=== PATIENT | female | born 1940 | race Caucasian/White ===

== ENCOUNTER 2019-04-12 11:24 | Emergency (ER) | payer MEDICARE, SELFPAY ==
[2019-04-12 11:24] VITALS: BP 136/82; PULSE 86; RESP 16; TEMP 36.1; O2SAT 95; BMI 24.0
--- NOTE | 2019-04-12 11:29 | EKG12_ITS ---
Test Reason : MEDICAL CLEARANCE Blood Pressure : / mmHG Vent. Rate : 084 BPM Atrial Rate : 084 BPM P-R Int : 156 ms QRS Dur : 076 ms QT Int : 362 ms P-R-T Axes : 000 -47 014 degrees QTc Int : 427 ms Normal sinus rhythm with sinus arrhythmia Left anterior fascicular block Nonspecific ST abnormality Abnormal ECG Confirmed by ROD QUESADA, DANNY ([id number]), supervising editor news reel TAIWO LINDSEY ([id number]) on 04/16/2019 12:08:31 PM Referred By: LUIS Confirmed By:LANDEN VELASCO MD
[2019-04-12 12:13] LABS: Absolute Lymphocyte Count 0.98 X10^3/uL (0.83-4.51); Absolute Neutrophil Count 1.8 X10^3/uL (2.0-7.7); Basophil# 0.02 X10^3/uL; Basophil% 0.6 % (0-1); Eosinophil# 0.14 X10^3/uL; Eosinophils% 4.3 % (0-5); Hematocrit 43.2 % (37-47); Hemoglobin 14.2 g/dL (12.0-15.0); Lymphocyte # 0.98 X10^3/ul (4.0); Lymphocyte % 29.9 % (19-41); Mean Corp Hgb Conc 32.9 g/dL (32-36); Mean Corpuscular Volume 94.3 fL (81-99); Mean Platelet Vol. 10.7 fl (6.2-12.0); Monocyte# 0.31 X10^3/uL; Monocyte% 9.5 % (0-10); NRBC Flagged by Analyzer 0 % (0-5); Neutrophil # 1.82 X10^3/uL (2.7-7.7); Neutrophil % 55.4 % (47-70); Platelet Count 175 K/mm3 (150-450); RBC Distribution Width CV 14.4 % (11.6-14.6); RBC Distribution Width SD 49.7 fl (35.1-43.9); Red Blood Count 4.58 M/mm3 (4.2-5.4); White Blood Count 3.3 K/mm3 (4.4-11.0)
[2019-04-12 12:32] LABS: ALB/GLOB Ratio 1.2 RATIO (0.9-2.4); AST(SGOT) 13 U/L (15-37); Alanine Aminotransfer ALT/SGPT 16 U/L (13-56); Albumin, Serum 3.7 g/dL (3.2-5.0); Alkaline Phosphatase 80 U/L (45-117); Anion Gap 5 (5-15); BUN 19 mg/dL (7-18); BUN/Creat Ratio 23.1 RATIO (10-20); Calcium,Total 9.4 mg/dL (8.5-10.1); Chloride 112 mmol/L (98-107); Creatinine, Serum 0.82 mg/dL (0.55-1.02); EST Glomerular Filtration Rate 72 mL/min (>60); Est Glom Filt Rate - Afr Amer 87 mL/min (>60); Estimated Creatinine Clearance 53.79 ml/min; Globulin 3.2 g/dL (2.2-4.2); Glucose 96 mg/dL (74-106); Potassium 3.7 mmol/L (3.5-5.1); Protein, Total 6.9 g/dL (6.4-8.2); Sodium Level 142 mmol/L (136-145)
[2019-04-12 12:37] VITALS: RESP 17
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
--- NOTE | 2019-04-12 12:57 | ED.VISSUMM ---
- ER Visit Summary Date of Service: 04/12/19 Chief Complaint: Suicidal History of Present Illness: The patient is a 79 F here for suicidal ideation. She has depression symptoms. Symptoms were worse after the of her son from cancer. She thought about overdosing, but did not take anything. She has no medical complaints today. Physical Examination: Afebrile and vital signs unremarkable. Patient is depressed. Alert. Oriented. Heart regular. Lungs clear. Abdomen soft. Skin appears normal. Moves all extremities. Ambulates without difficulty. Test Results: CBC, CMP, alcohol level, and tox screen unremarkable. Emergency Department Course and Treatment: Patient had suicide precautions. She had a pink slip by law enforcement. Her clearance was unremarkable. She is medically cleared for transfer and admission to a psychiatric facility. Crisis is evaluating the patient. Treatment Plan: As above Disposition: Transfer pending crisis evaluation Impression: 1. Suicidal ideation This note was generated with [employer] dictation software. It may contain incorrect words, spelling, and punctuation that were not noted in review of the chart prior to signing ED Disposition - Plan for ED Patient: [facility] [[facility] Provider] -
[2019-04-12 13:11] VITALS: RESP 16
--- NOTE | 2019-04-12 13:15 | CM.ED ---
SOCIAL WORK REFERRAL FAXED AND CALLED TO [facility] FOR INPATIENT PSYCH SERVICES. ROSETTA SMITH, DRY COLOR TESTER, LOOPER FIXER.
[2019-04-12 13:52] LABS: Amphetamine Urine VISTA NEGATIVE (<1000 ng/mL); Barbiturate Urine VISTA NEGATIVE (< 200 ng/mL); Benzodiazepine Urine VISTA NEGATIVE (< 200 ng/mL); Cocaine Urine VISTA NEGATIVE (< 300 ng/mL); Ecstacy Urine VISTA NEGATIVE (< 500 ng/mL); Methadone Urine VISTA NEGATIVE (< 300 ng/mL); PCP Urine VISTA NEGATIVE (< 25 ng/mL); THC Urine VISTA NEGATIVE (< 50 ng/mL); Vista UDS pH Range 6
[2019-04-12 15:06] VITALS: BP 128/74; PULSE 87; RESP 18; O2SAT 99
--- NOTE | 2019-04-12 15:12 | CM.ED ---
SOCIAL WORK CALL TO [facility] [phone] TO CHECK ON STATUS OF REFERRAL FOR INPATIENT PSYCH SERVICES. LEFT MESSAGE FOR SENIOR PLANNING MANAGER, ITZEL. AWAITING CALL BACK AT THIS TIME. ROSETTA SMITH, GENERALIST, LINING MARKER.
--- NOTE | 2019-04-12 15:47 | CM.ED ---
SOCIAL WORK RECEIVED PHONE CALL FROM ITZEL WITH [facility]. PER ITZEL, PATIENT IS NOT SERVICE CONNECTED AND RECOMMENDING THIS WORKER TRY ANOTHER PLACEMENT. CALL TO [facility], SPOKE WITH [facility]. REVIEWED REFERRAL AND [facility] REPORTS DOES HAVE BEDS AVAILABLE. REFERRAL FAXED. PER [facility], WILL REVIEW AND GET BACK TO THIS WORKER. ROSETTA SMITH, WOOD TILE INSTALLER, STONEMASON SUPERVISOR.
[2019-04-12 16:00] VITALS: RESP 16
--- NOTE | 2019-04-12 16:17 | CM.ED ---
Addendum entered by Anita Smith 04/12/19 16:42: PATIENT AND NIECE UPDATED. Original Note: SOCIAL WORK PATIENT ACCEPTED TO [facility]. ACCEPTING PHYSICIAN DR. CHAMBERS. PINK SLIP FAXED TO [facility]. FAST FOOD SALES ASSISTANT TO SET UP TRANSPORT. ANITA SMITH, SUBSTATION ENGINEER, LUG BREAKER AND WIRE PULLER.
[2019-04-12 16:18] VITALS: BP 128/74; PULSE 84; RESP 18; O2SAT 99
== END 2019-04-12 16:55 ==
PROVIDERS: Emergency Provider Emergency Medicine
DX: R45.851 Suicidal ideations (principal); Z72.89 Other problems related to lifestyle; Z60.2 Problems related to living alone
CPT/HCPCS: 80053; 80307; 80320; 85025; 93005; 99284; G0480

== ENCOUNTER 2019-04-26 19:17 | Emergency (ER) | payer MEDICARE, OTHER, SELFPAY ==
[2019-04-26 19:19] VITALS: BP 164/94; PULSE 90; RESP 18; TEMP 36.7; O2SAT 94; BMI 26.1
--- NOTE | 2019-04-26 19:34 | EKG12_ITS ---
Test Reason : DYSRHYTHMIA Blood Pressure : / mmHG Vent. Rate : 078 BPM Atrial Rate : 078 BPM P-R Int : 186 ms QRS Dur : 086 ms QT Int : 386 ms P-R-T Axes : 049 -27 027 degrees QTc Int : 440 ms Normal sinus rhythm Normal ECG Confirmed by CRISTAL QUESADA, JO ([id number]), map editor GRAHAM GUTIERREZ ([id number]) on 04/29/2019 3:19:50 PM Referred By: KELLY Confirmed By:JO BEE MD
--- NOTE | 2019-04-26 19:34 | CT_ITS ---
STUDY: CT BRAIN WITHOUT CONTRAST REASON FOR EXAM: Female, 79 years old. Dizziness. History of hydrocephalus. RADIATION DOSAGE (If Supplied By Facility): CTDIvol = ( 44.99 ) mGy, DLP = ( 762.36 ) mGycm TECHNIQUE: Transaxial CT imaging of the brain was performed without administration of intravenous contrast material. Individualized dose optimization techniques were used for this CT. COMPARISON: No relevant priors. FINDINGS: Normal soft tissue structures. Normal calvarium. There is disproportionate enlargement of the lateral and third ventricles, as compared to the extra-axial spaces. The findings suggest normal pressure hydrocephalus (NPH). There are areas of decreased attenuation within the white matter tracts of the supratentorial brain, consistent with microvascular disease changes. There are small punctate calcifications of the basal ganglia which are seen in the aging brain as a normal variant. Normal brainstem. Normal cerebellum. There is no intracranial hemorrhage. There are no findings of an acute ischemic infarction. Normal visualized paranasal sinuses. CT/Brain/Head without Contrast IMPRESSION: Out NPH versus central atrophy. There is no acute intracranial or calvarial abnormality. Electronically Signed: Ayaz Valdovinos DO at 20:16 EDT Tel [phone], Service support ,
--- NOTE | 2019-04-26 19:36 | ED.VISSUMM ---
- ER Visit Summary Date of Service: 04/26/19 Chief Complaint: Dizziness History of Present Illness: The patient is a 79 F 3 of hypertension depression. Recently hospitalized and discharged today from [facility] for psychiatry. Patient states that she had room spinning dizziness started about 2 hours ago. No headache. No chest pain. No shortness of breath. Some mild nausea but no vomiting or diarrhea. No fever. No dysuria. No melena. No headache or head injury. No history of prior stroke or TIA. No weakness or numbness of her upper or lower extremities. Physical Examination: Older female no acute distress. Vital signs are stable. She is afebrile. HEENT exam unremarkable. Atraumatic. Pupils are reactive light. Extra motions are intact. Better and ear canals and TMs are unremarkable. No wax. No facial droop. Normal speech. Neck nontender. No bruits. Lungs clear to auscultation bilaterally. Heart regular rhythm rate about 90 no murmur. Abdomen soft nontender normal bowel sounds no peritoneal signs. Remedies moves all 4. Neurovascular intact. Equal symmetrical 5 out of 5 dairy equipment mechanic strength. Equal symmetrical 5 out of 5 dorsi and plantar flexion. She has mild pedal edema both feet. Calves are nontender without edema or cords. Neurologically she is awake and alert. She knows here, month and president. She knows who she is and where she is at. She has no slurred speech no facial droop. NIH score is 0. Back exam is normal. Hallpike maneuver does make her dizziness worse and it causes the room spinning. Test Results: EKG shows sinus rhythm rate of 78 with no acute abnormalities. CBC normal white count of 5 hemoglobin 13. Chemistries unremarkable gap is 6. BUN [address] brain shows old normal pressure hydrocephalus versus central atrophy but no acute process read by the radiologist and reviewed by me. Emergency Department Course and Treatment: Elderly female examined history consistent with acute vertigo. Went to be p.o. Valium and IV Zofran. Repeat exam at 9:05 PM patient is doing well. She states she feels much better after the p.o. Valium and the IV Zofran. Repeat blood work her exam is currently normal. Treatment Plan: Valium as needed for vertigo. Follow up with her doctor. Disposition: Discharge Impression: Acute dizziness secondary to benign positional vertigo This note was generated with [employer] software. It may contain incorrect words, spelling, and punctuation that were not noted in review of the chart prior to signing ED Disposition - Plan for ED Patient: [facility] [Primary [facility] Provider] -
[2019-04-26] MEDS: diazePAM 2 MG Tablet 4 MG PO ×2 (19:43→21:23)
[2019-04-26] MEDS: Ondansetron 4 MG/2 ML Vial IV (19:43)
[2019-04-26 19:44] LABS: Absolute Lymphocyte Count 1.62 X10^3/uL (0.83-4.51); Absolute Neutrophil Count 2.9 X10^3/uL (2.0-7.7); Basophil# 0.01 X10^3/uL; Basophil% 0.2 % (0-1); Eosinophil# 0.21 X10^3/uL; Hematocrit 41.9 % (37-47); Hemoglobin 13.5 g/dL (12.0-15.0); Lymphocyte # 1.62 X10^3/ul (4.0); Lymphocyte % 31.1 % (19-41); Mean Corp Hgb Conc 32.2 g/dL (32-36); Mean Corpuscular Hgb 30.7 pg (27.0-32.0); Mean Corpuscular Volume 95.2 fL (81-99); Mean Platelet Vol. 11.5 fl (6.2-12.0); Monocyte# 0.44 X10^3/uL; Monocyte% 8.4 % (0-10); NRBC Flagged by Analyzer 0 % (0-5); Neutrophil % 55.7 % (47-70); Platelet Count 177 K/mm3 (150-450); RBC Distribution Width CV 14.8 % (11.6-14.6); RBC Distribution Width SD 52.1 fl (35.1-43.9); White Blood Count 5.2 K/mm3 (4.4-11.0)
[2019-04-26 20:01] LABS: Anion Gap 6 (5-15); BUN 25 mg/dL (7-18); BUN/Creat Ratio 25.4 RATIO (10-20); Calcium,Total 9.6 mg/dL (8.5-10.1); Chloride 110 mmol/L (98-107); Creatinine, Serum 0.98 mg/dL (0.55-1.02); EST Glomerular Filtration Rate 58 mL/min (>60); Est Glom Filt Rate - Afr Amer 71 mL/min (>60); Estimated Creatinine Clearance 41.51 ml/min; Glucose 127 mg/dL (74-106); Potassium 3.7 mmol/L (3.5-5.1); Sodium Level 142 mmol/L (136-145)
--- NOTE | 2019-04-26 21:07 | ED.DEP ---
ED Disposition - Plan for ED Patient: Disposition: Home or Assisted Living Instructions: VERTIGO, Unspecified Prescriptions: Diazepam [Valium] 5 mg PO 4X/DAY PRN PRN 7 Days #20 tab PRN Reason: Vertigo Prescription Printed [facility]errals: [facility] [Primary Care Provider] - 1 Week if not improving Additional Instructions: Fluids and rest. Valium as needed for the dizziness. Not drive while taking the Valium. Return if feeling worse or follow-up with your doctor if not improving.
[2019-04-26 21:14] VITALS: BP 158/85; PULSE 85; RESP 14; O2SAT 97
[2019-04-26 21:23] VITALS: BP 141/80; PULSE 80; RESP 15; O2SAT 96
== END 2019-04-26 21:24 | disposition home or self-care (01) ==
PROVIDERS: Emergency Provider Emergency Medicine
DX: H81.10 Benign paroxysmal vertigo, unspecified ear (principal)
CPT/HCPCS: 70450; 80048; 85025; 93005; 96374; 99285; J2405